=== PATIENT | male | born 1990 | race Caucasian/White ===

== ENCOUNTER 2018-12-17 16:39 | Emergency (ER) | payer SELFPAY ==
[~2018-12-17] VITALS: Ht 185.4 cm; Wt 90.9 kg
--- NOTE | 2018-12-17 16:46 | NUR ---
BIB [facility] AFTER BYSTANDER CALLED FOR PT "ODD BEHAVIOR". PT DID METH SOMETIME THIS AFTERNOON. WAS COMBATIVE W/ STAFF. ARRIVED IN RESTRAINTS. PLACED IN 4 POINT RESTRAINTS ON ARRIVAL. CONTINUES TO BE COMBATIVE. BS 79, HR 120'S SURGICAL TECH. PT DOES FOLLOW COMMANDS AT TIMES. PT RESTING ON GURNEY IN RESTRAINTS. CMS INTACT. MONITORING APPLIED.
[2018-12-17] MEDS ORDERED: ZIPRASIDONE 20 MG INJ IM PRN (17:30)
--- NOTE | 2018-12-17 17:36 | NUR ---
PT ASLEEP ON GURNEY WITH INTERMITTANT JOLTING. IN 4 POINT RESTRAINTS. RISE AND FALL OF CHEST NOTED. MARGARETTEN. VSS.
[2018-12-17 17:38] VITALS: BP 121/71
--- NOTE | 2018-12-17 18:21 | NUR ---
PT AWAKE. AO TO SELF. PT COOPERATIVE AND ANSWERING QUESTIONS APPROPRIATELY. PROVIDED W/ PO FLUIDS. RELEASED FROM LA AND RL RESTRAINTS.
--- NOTE | 2018-12-17 18:38 | NUR ---
PT REMOVED FROM ALL RESTRAINTS. PT AOX4.
--- NOTE | 2018-12-17 19:00 | NUR ---
REPORT GIVEN TO KAREEM KRISHNAMURTHY RN.
== END 2018-12-17 19:11 | disposition home or self-care (01) ==
LOC: EDBD 16:39 → ED 19:00 → MERGE 19:00 → ED 19:11
DX: G92 Toxic encephalopathy (principal); F15.122 Other stimulant abuse with intoxication with perceptual disturbance
CPT/HCPCS: 99284